=== PATIENT | female | born 1975 | race Caucasian/White ===

== ENCOUNTER 2018-06-02 12:18 | Outpatient (CLI) | payer MEDICARE, MEDICAID ==
[~2018-06-02] VITALS: Ht 167.6 cm; Wt 132.4 kg
[~2018-06-02 12:18] MED LIST: GABA300C PO; LORAZEPAM; MELO-195 PO; [UNRECOGNIZED DRUG - REMARK]
[2018-06-02 12:30] VITALS: BP 139/92
[2018-06-02] MEDS ORDERED: DICL75TA2 PO (12:34)
[2018-06-02] MEDS ORDERED: BACL10TA PO (12:34)
[2018-06-02] MEDS ORDERED: BUPR1FIL3 SL (12:34)
[2018-06-02] MEDS ORDERED: FURO-125 PO (12:34)
[2018-06-02 13:14] LABS: BASOPHILS % (AUTO) 0 % (0-10); EOSINOPHILS # (AUTO) 0.3 10^3/uL (0.0-0.3); EOSINOPHILS % (AUTO) 4 % (0-10); HEMATOCRIT 42 % (35-52); HEMOGLOBIN 14.4 G/DL (11.5-16.0); LYMPHOCYTES # (AUTO) 2.8 X 10^3 (1.0-4.0); LYMPHOCYTES % (AUTO) 35 % (12-44); MEAN CORPUSCULAR HEMOGLOBIN 31 PG (25-34); MEAN CORPUSCULAR HGB CONC 35 G/DL (32-36); MEAN CORPUSCULAR VOLUME 89 FL (80-99); MEAN PLATELET VOLUME 9.7 FL (7.4-10.4); MONOCYTES # (AUTO) 0.7 X 10^3 (0.0-1.0); MONOCYTES % (AUTO) 9 % (0-12); NEUTROPHILS # (AUTO) 4.3 X 10^3 (1.8-7.8); NEUTROPHILS % (AUTO) 53 % (42-75); PLATELET COUNT 219 10^3/uL (130-400); RED BLOOD COUNT 4.68 10^6/uL (4.35-5.85); RED CELL DISTRIBUTION WIDTH 13.4 % (10.0-14.5); WHITE BLOOD COUNT 8.1 10^3/uL (4.3-11.0)
--- NOTE | 2018-06-02 13:24 | Diagnostic Imaging Report ---
Indication: Preop excision and repair of scalp lesion. PA and lateral chest. Heart size and pulmonary vascularity are normal. Lungs are clear. There are no effusions or pneumothoraces. Impression: Negative chest. Dictated by: Dictated on workstation # [id number]
[2018-06-02 13:28] LABS: INR 1.1 (0.8-1.4); PROTHROMBIN TIME PATIENT 14.1 SEC (12.2-14.7)
[2018-06-02 13:35] LABS: ALANINE AMINOTRANSFERASE 58 U/L (0-55); ALBUMIN 4.1 GM/DL (3.2-4.5); ALKALINE PHOSPHATASE 84 U/L (40-136); BILIRUBIN,DIRECT 0.4 MG/DL (0.0-0.3); BILIRUBIN,INDIRECT 0.5 MG/DL; BILIRUBIN,TOTAL 0.9 MG/DL (0.1-1.0); BUN/CREATININE RATIO 11; CALCIUM 9.3 MG/DL (8.5-10.1); CARBON DIOXIDE 23 MMOL/L (21-32); CHLORIDE 104 MMOL/L (98-107); GFR ESTIMATED > 60; GLUCOSE 86 MG/DL (70-105); POTASSIUM 4.1 MMOL/L (3.6-5.0); SODIUM 136 MMOL/L (135-145); TOTAL PROTEIN 7.7 GM/DL (6.4-8.2)
== END 2018-06-02 13:15 | disposition home or self-care (01) ==
LOC: PREOP 12:18
PROVIDERS: ATTEND Otolaryngology Otolaryngology/Facial Plastic Surgery
DX: Z01.810 Encounter for preprocedural cardiovascular examination (principal); Z01.811 Encounter for preprocedural respiratory examination; Z01.812 Encounter for preprocedural laboratory examination; Z11.2 Encounter for screening for other bacterial diseases; L98.9 Disorder of the skin and subcutaneous tissue, unspecified; Z86.19 Personal history of other infectious and parasitic diseases
CPT/HCPCS: 36415; 71046; 80048; 80076; 85025; 85610; 85730; 87081

== ENCOUNTER → 2020-01-01 | Outpatient (CLI) | payer MEDICARE, MEDICAID ==
[~2020-01-01] MED LIST changes: +BACL10TA PO; +BUPR1FIL3 SL; +DICL75TA2 PO; +FURO-125 PO
--- NOTE | 2020-01-01 16:24 | Diagnostic Imaging Report ---
INDICATION: Chronic right knee pain. COMPARISON: None available. TECHNIQUE: Three radiographs of the right knee dated January 01, 2020. FINDINGS: No acute fracture or dislocation. Significant joint space narrowing is identified associated with the lateral knee compartment. This is associated with chronic appearing depression of the lateral tibial plateau. Significant sclerosis and irregularity is noted associated with the lateral compartment. Severe osteophytosis within the lateral compartment with additional moderate scattered osteophytosis. Tiny knee joint effusion. Severe degenerative changes of the proximal tibiofibular joint is noted with associated osteophyte formation. No suspicious radiopaque foreign body. IMPRESSION: 1. No acute osseous abnormality. 2. Severe end-stage degenerative changes within the lateral compartment. Given significant depression of the lateral tibial plateau, this may relate to sequelae of remote injury to the region. Moderate degenerative changes are noted within the remainder of the knee. 3. Small knee joint effusion. Dictated by: Dictated on workstation # [id number]
== END ==
LOC: RAD FS 15:45
PROVIDERS: ATTEND Emergency Medicine
DX: M17.11 Unilateral primary osteoarthritis, right knee (principal); M25.461 Effusion, right knee
CPT/HCPCS: 73562

== ENCOUNTER → 2020-12-09 | Outpatient (CLI) | payer MEDICARE, MEDICAID ==
--- NOTE | 2020-12-09 09:49 | Diagnostic Imaging Report ---
INDICATION: Cirrhosis. PROCEDURE: Ultrasound abdomen complete. TECHNIQUE: Multiple real-time grayscale images were obtained of the abdomen in various projections. Overall quality of the study is somewhat limited due to patient body habitus and overlying bowel gas. The liver is normal in size at 15.8 cm. No discrete liver mass is identified. The portal vein is patent and shows normal direction of flow. Gallbladder does contain multiple stones. There is no wall thickening or pericholecystic fluid. No biliary duct dilatation is seen. The pancreas was obscured by bowel gas. The spleen is normal in size at 9.9 cm. Aorta is nonaneurysmal. IVC is patent. Right and left kidneys are without evidence of calculi or hydronephrosis. There is no ascites. IMPRESSION: 1. No evidence of liver mass. 2. Cholelithiasis without evidence of acute cholecystitis. Dictated by: Dictated on workstation # [id number]
== END ==
LOC: RAD 12-02 08:00
PROVIDERS: ATTEND Internal Medicine
DX: K74.60 Unspecified cirrhosis of liver (principal); K80.20 Calculus of gallbladder without cholecystitis without obstruction
CPT/HCPCS: 76700

== ENCOUNTER → 2021-04-10 | Outpatient (CLI) | payer MEDICARE, MEDICAID ==
[~2021-04-10] MED LIST changes: +CATHETER FLUSH 10 ML SYR IV PRN; +HOLD METFORMIN - RECEIVED CONTRAST 20 ML VIAL IV SCH; +IOHEXOL 350 MG/ML 100 ML (OMNIPAQUE 350) VIAL IV ONE; +NS 100 ML (IVPB) BAG IV ONE
--- NOTE | 2021-04-10 15:18 | Diagnostic Imaging Report ---
PROCEDURE: CT abdomen and pelvis without contrast. TECHNIQUE: Multiple contiguous axial images were obtained through the abdomen and pelvis without the use of intravenous contrast. Auto Exposure Controls were utilized during the CT exam to meet ALARA standards for radiation dose reduction. INDICATION: Abdominal pain and bloody stools for 5 days. The lung bases are clear. The liver, gallbladder and bile ducts are normal. The spleen, pancreas and adrenals are normal. Kidneys, ureters and bladder are normal. There is mucosal thickening of the sigmoid colon and distal descending colon. There are several scattered diverticula in this region. The changes are consistent with a colitis and could possibly be due to diverticulitis. There is no obstruction, perforation or abscess evident at this time. The small bowel is within normal limits. There is no acute bony abnormality. IMPRESSION: Spasm and mucosal edema of the distal descending colon as well as the sigmoid colon consistent with a colitis. No obstruction or abscess is present at this time. Dictated by: Dictated on workstation # [id number]
== END ==
LOC: RAD FS 09:46
PROVIDERS: ATTEND Nurse Practitioner Family
DX: K92.1 Melena (principal); K52.9 Noninfective gastroenteritis and colitis, unspecified
CPT/HCPCS: 74176

== ENCOUNTER 2021-08-19 15:20 | Emergency (ER) | payer MEDICARE, MEDICAID ==
[~2021-08-19] VITALS: Ht 165.1 cm; Wt 122.0 kg
[~2021-08-19 15:20] MED LIST changes: -CATHETER FLUSH 10 ML SYR IV PRN; -HOLD METFORMIN - RECEIVED CONTRAST 20 ML VIAL IV SCH; -IOHEXOL 350 MG/ML 100 ML (OMNIPAQUE 350) VIAL IV ONE; -NS 100 ML (IVPB) BAG IV ONE
--- OUTSIDE RECORDS SUMMARY | 2021-08-19 15:25 | XMS REPORT | Encounter Summary ---
Author Author [facility] Organization [facility] Address Unknown Phone Unavailable Care Team Providers Care Offal Icer Poultry Name Role Phone Robert Garcia DO PCP Reason for Visit * Reason Onset Date Comments Results 07/14/2021 Labs Encounter Details Care Team Description Date Type Department Jacqueline-Jes Romero LPN Results (Labs) 07/14/2021 Telephone Transplant: Main [facility], [facility] [address] [place] [address] Social History Date Tobacco Use Types Packs/Day Years Used Current Every Day Smoker Cigarettes 0.25 20 Smokeless Tobacco: Never Used Comments Alcohol Use Standard Drinks/Week Not Currently 0 (1 standard drink = 0.6 o z pure alcohol) Sex Assigned at Date Recorded Female 11/04/2020 9:28 AM [employer] Date Recorded COVID-19 Exposure Response 07/11/2021 2:55 PM CDT In the last month, have you been in contact with No / Unsure someone who was confirmed or suspected to have Coronavirus / COVID-19? documented as of this encounter Functional Status Date of Assessment Functional Status Response 11/07/2020 Does the patient have a hearing impairment: No 11/07/2020 Does the patient have a visual impairment: Yes 11/07/2020 Does the patient have impaired ambulation: Yes 07/11/2021 Does the patient have an activity of daily living No (ADL) impairment: 07/11/2021 Does the patient have an instrumental activity of Ye s daily living (IADL) impairment: Date of Assessment Cognitive Status Response 11/07/2020 Does the patient have a cognitive impairment: No documented as of this encounter Miscellaneous Notes * Telephone Encounter - Jes Akhtar LPN - 07/27/2021 3:08 PM [employer]SEMBLY INSPECTOR Spoke with pt to go over lab results. Reeducated pt on liver health and ways to reduce fat in the liver. All pt questions were answered and pt v/u. Jes Akhtar LPN MBLY INSPECTOR * Telephone Encounter - Jes Akhtar LPN - 07/14/2021 10:49 AM CDT Attempted to reach pt to discuss lab results. Provided call back name and number . Jes Akhtar LPN documented in this encounter Plan of Treatment Not on filedocumented as of this encounter Visit Diagnoses Not on filedocumented in this encounter Additional Health Concerns Noted Time Assessment 07/11/2021 3:08 PM CDT A fall risk assessment has been complet ed for the patient 07/11/2021 3:08 PM CDT PHQ-2 Depression Total Score: 0 documented as of this encounter Care Teams Start Date End Date Offal Icer Poultry Relationship Specialty 10/11/20 Robert Garcia DO PCP - [address] [id number] documented as of this encounter
--- OUTSIDE RECORDS SUMMARY | 2021-08-19 15:25 | XMS REPORT | Encounter Summary ---
Author Author [facility] Organization [facility] Address Unknown Phone Unavailable Care Team Providers Care Research And Development Specialist Name Role Phone Robert Garcia DO PCP Reason for Referral * Radiology Services (Routine) - Pending Review Diagnoses / Procedures Referred By Contact Referred To Conta ct Specialty Diagnoses Cirrhosis of liver without ascites, unspecified hepatic cirrhosis type (HCC) Hepatitis C virus infection resolved after antiviral drug therapy Procedures US ABDOMEN LIMITED Allen Mckeon MD [address] [place] [address] Radiology Referral ID Status Reason Start Date Expiration Visits Vi sits Date Requested Authorized [id number] Pending 07/11/2021 07/11/2022 1 1 Review Reason for Visit * Reason Comments Other Encounter Details Care Team Description Date Type Department Allen Mckeon MD [address] [place] [address] Violet Cassidy, [employer] HELPER[employer] W[employer]OWS ENGINEER [address] [place] [address] Cirrhosis of liver without ascites, unsp ecified hepatic cirrhosis type (HCC) (Primary Dx); Hepatitis C virus infection resolved after antiviral drug therapy; Immunization counseling 07/11/2021 Office Visit Hepatology: [facility], Main [address], [address] [place] [address] Social History Date Tobacco Use Types Packs/Day Years Used Current Every Day Smoker Cigarettes 0.25 20 Smokeless Tobacco: Never Used Comments Alcohol Use Standard Drinks/Week Not Currently 0 (1 standard drink = 0.6 o z pure alcohol) Sex Assigned at Date Recorded Female 11/04/2020 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 documented as of this encounter Last Filed Vital Signs Reading Time Taken Comments Vital Sign 107/64 07/11/2021 3:11 PM CDT Blood Pressure 76 07/11/2021 3:11 PM CDT Pulse 36.7 C (98.1 F) 07/11/2021 3:11 PM CDT Temperature 17 07/11/2021 3:11 PM CDT Respiratory Rate 98% 07/11/2021 3:11 PM CDT Oxygen Saturation - - Inhaled Oxygen Concentration 119.2 kg (262 lb 12.8 oz) 07/11/2021 3:11 PM CDT Weight 162.6 cm (5' 4") 07/11/2021 3:11 PM CDT Height 45.11 07/11/2021 3:11 PM CDT Body Mass Index documented in this encounter Functional Status Date of Assessment [...] impairment: No documented as of this encounter Progress Notes * Violet Cassidy, [place]-[employer] W[employer] ENGINEER - 07/11/2021 2:00 PM CDT Date of Service: 07/11/2021 Chief complaint/Reason for visit: Routine hepatology visit [place] Liver Disease: compensated Cirrhosis 2/2 HCV +/- Alcohol Use and Metaboli c Liver disesase Primary Marketing Assistant Retail Division: Dr. Allen Mckeon Last clinic visit: 11/07/[address] Mckeon Subjective: Thalia Pinto is a 46 y.o. female past medical history significant for anxie ty and depression, chronic hep C, class III obesity, hypertension, dyslipidemia, prior intravenous drug usage currently on Suboxone therapy. History of Present Illness Ms. Pinto is a 46 y.o. female presenting to the hepatology clinic alone today f or continued management of compensated cirrhosis. Please refer to additional hepatology documentation noted on 11/07/20 for addition al pertinent history. We reviewed and discussed the progression of liver fibrosis from F0/F1 to F4 (ci rrhosis). We reviewed that with advanced fibrosis (cirrhosis) the recommendation to continue with hepatocellular carcinoma (HCC) screening on a every 6-month ba sis. We discussed that this includes abdominal imaging in conjunction with an a lpha-fetoprotein blood draw. HCC Screening - Abdominal Imagin06/12/21 without evidence of hepatoma - AFP:1.6 on 11/07/20 --> to update today Recommendation for repeat abdominal imaging and lab draw every 6 months in accyolanda galloce with [facility]AS[facility] HCC screening guidelines unless otherwise noted. We discussed that with advanced liver disease manifestations of decompensation c an occur. We discussed that this includes, but is not limited to: hepatic encep halopathy, abdominal ascites, lower extremity edema, and the presence of esophag eal varices. Educated that medical management is accomplished through use of pha rmacotherapies, screenings, and lifestyle modifications (ie; no more than 2000 m g of sodium daily). Compensation/Decompnsation: HE: None per patient report - daily stools/constipation: no constipation - pharmacotherapy: uses Miralax every other day Ascites/Lower Extremity Edema: None - diuretics: none - low sodium diet adherence: does not monitor EV Screening: Defer at this time - EGD Results:N/A She denies any hepatic decompensation events such as ascites, variceal hemorrhag e, encephalopathy or jaundice. She denies any overt signs of GI bleeding at this time such as hematemesis, coff ee-ground emesis, melena, or hematochezia. Tobacco Use: 1/2 ppd Alcohol Use: None Substance Use: None Hospitalizations since last OV: None Defer influenza vaccination today. Updates she completed a colonoscopy at [facility] in [place] 05/03/21. She continue to have limited mobility due to her right knee. She updated that umair ellsworth is following up with a local provider to inquire about surgery/repair. Medical History: Diagnosis Date Anxiety Depression HCV (hepatitis C virus) Hypertension Hypothyroid Obesity, morbid, BMI 40.0-49.9 (HCC) Surgical History: Procedure Laterality Date EYE SURGERY TUBAL LIGATION Family History Problem Relation Age of Onset Hypertension Mother Coronary Artery Disease Father Social History Socioeconomic History Marital status: Single Spouse name: Not on file Number of children: Not on file Years of education: Not on file Highest education level: Not on file Occupational History Not on file Tobacco Use Smoking status: Current Every Day Smoker Packs/day: 0.25 Years: 20.00 Pack years: 5.00 Types: Cigarettes Smokeless tobacco: Never Used Substance and Sexual Activity Alcohol use: Not Currently Drug use: Not Currently Sexual activity: Yes Other Topics Concern Not on file Social History Narrative Not on file Review of Systems Constitutional: Negative. HENT: Negative. Eyes: Negative. Respiratory: Negative. Negative for cough and shortness of breath. Cardiovascular: Negative. Negative for chest pain and leg swelling. Gastrointestinal: Negative. Negative for abdominal distention, abdominal pain, blood in stool, constipation, diarrhea, nausea and vomiting. Endocrine: Negative. Genitourinary: Negative. Musculoskeletal: Negative. Skin: Negative. Allergic/Immunologic: Negative. Neurological: Negative. Negative for dizziness, tremors, syncope and headaches. Hematological: Negative. Psychiatric/Behavioral: Negative. Reviewed and updated active medication and allergy list. Objective: baclofen (LIORESAL) 10 mg tablet Take 10 mg by mouth four times daily. buprenorphine/naloxone (SUBOXONE) 8/[address] 1 Film under tongue. gabapentin enacarbil 300 mg TbER Take 300 mg by mouth three times daily. lisinopriL (ZESTRIL) 10 mg tablet Take 10 mg by mouth daily. lurasidone (LATUDA) 120 mg tablet Take 120 mg by mouth at bedtime daily. MILK THISTLE PO Take by mouth. polyethylene glycol 3350 (MIRALAX) 17 g packet Take 17 g by mouth daily. simvastatin (ZOCOR) 10 mg tablet Take 10 mg by mouth at bedtime daily. Vitals: 07/11/21 1511 BP: 107/64 BP Source: Arm, Right Upper Patient Position: Sitting Pulse: 76 Resp: 17 Temp: 36.7 C (98.1 F) TempSrc: Oral SpO2: 98% Weight: 119.2 kg (262 lb 12.8 oz) Height: 162.6 cm (64") PainSc: Six Body mass index is 45.11 kg/m. Physical Exam Vitals and nursing note reviewed. Constitutional: Appearance: Normal appearance. HENT: Head: Normocephalic and atraumatic. Mouth/Throat: Comments: Mask in place Eyes: General: No scleral icterus. Conjunctiva/sclera: Conjunctivae normal. Pupils: Pupils are equal, round, and reactive to light. Cardiovascular: Rate and Rhythm: Normal rate and regular rhythm. Pulses: Normal pulses. Heart sounds: Normal heart sounds. Pulmonary: Effort: Pulmonary effort is normal. Breath sounds: Normal breath sounds. Abdominal: General: Bowel sounds are normal. There is no distension. Palpations: Abdomen is soft. Tenderness: There is no abdominal tenderness. There is no guarding or rebound . Musculoskeletal: General: No swelling. Cervical back: Normal range of motion and neck supple. Right lower leg: No edema. Left lower leg: No edema. Skin: General: Skin is warm and dry. Coloration: Skin is not jaundiced. Neurological: General: No focal deficit present. Mental Status: She is alert and oriented to person, place, and time. Mental s tatus is at baseline. Psychiatric: Mood and Affect: Mood normal. Behavior: Behavior normal. Thought Content: Thought content normal. Judgment: Judgment normal. MELD-Na score: 7 at 07/11/2021 4:17 PM MELD score: 7 at 07/11/2021 4:17 PM Calculated from: Serum Creatinine: 0.51 MG/DL (Using min of 1 MG/DL) at 07/11/2021 4:17 PM Serum Sodium: 138 MMOL/L (Using max of 137 MMOL/L) at 07/11/2021 4:17 PM Total Bilirubin: 0.6 MG/DL (Using min of 1 MG/DL) at 07/11/2021 4:17 PM INR(ratio): 1.1 at 07/11/2021 4:17 PM Age: 46 years Assessment/Plan/Recommendations Chronic Hepatitis C (genotype 1a): - Epclusa (velpatasvir 100mg/sofosbuvir 400mg) --> 1 tablet by mouth once daily for 12 weeks. Therapy complete: 05/2020-08/2020. - Achieve sustained virologic response (SVR) following completion of HCV therap y to determine cure. The HCV PCR lab should be drawn 12 weeks after completion o f HCV therapy. - SVR labs due on/after November 2021. - SRV noted on 11/07/20. Cirrhosis: - The patient has noted cirrhosis with compensation. - Continue with recommended HCC screenings as noted below. - We will continue to monitor MELD labs every 6-12 months or with noted changes in health condition/decompensation. Transient Elastography (FibroScan): - Plan to repeat re-stratification for fibrosis progression/regression next bill alvarado with an updated FibroScan. FibroScan Results 07/11/21 E (Elasticity) Median (kPa): 8.7 IQR / Median (%): 33 CAP Median (dB/m): 292 April 2020 E (Elastacity) Median:14 kPa CAP Median: 331dB/m Hepatocellular Cancer Screening: - Due to advanced fibrosis/cirrhosis a recommend screening for hepatoma every 6 months with either abdominal ultrasound or by alternating abdominal ultrasound w ith EITHER a triple/quad phase CT Liver with IV contrast OR a Quad phase MRI Mansi er with IV contrast is suggested. - AFP levels should be checked every 6 months at time of image screening. Lab Results Component Value Date/Time AFP 1.3 07/11/2021 04:17 PM Ascites/Lower Extremity Edema: - Continues to be euvoemic off all diuretics. - Continue to follow a sodium restricted (<2g sodium diet). Portosystemic Encephalopathy (PSE)/Hepatic Encephalopathy: - Presents without hepatic encephalopathy symptoms today. - Counseled on signs and symptoms of hepatic encephalopathy. - Recommend strict avoidance of medications such as narcotics, sedatives and sl eep aids. Low dose Benadryl PRN or melatonin can be used for insomnia, if needed . Esophageal Varices/Portal Hypertension: -Patient with liver stiffness less than 20 kPa and platelet count greater than 1 50 are identified at a ow probability (less than 5%) of having high risk varices a platelet count greater than 150 of low probability (less than 5%) of having hi gh risk varices. - Will continue to defer EGD f/u at this time. Bone health: - Strongly recommend screening for Vitamin D deficiency at least twice yearly wi th aggressive supplementation/replacement as indicated. Replacement per CFT prot ocol for values less than 30ng/mL. No results found for: VITD25 - Recommend calcium +Vitamin D supplementation (2000 IU of Vitamin D and 1200mg Calcium). Tobacco Use: - The patient currently has daily tobacco use and tobacco cessation was recommen ded. Alcohol Use: - The patient has a history of alcohol use and continued alcohol abstinence was encouraged. Vaccinations: Immunization History Administered Date(s) Administered Hepatitis A vaccine Ped Adol 2 dose IM 07/11/2021 Hepatitis A/B (Strongly recommend vaccinations for hepatitis A and B if the saji ent not immune.) - Reviewed titers. - Recommend booster series as outlined below if low/no immunity. May obtain with our office or with PCP office. - Vaccination recommendation per CDC guidelines: - Hepatitis A: 2-dose series HepA (Havrix 612 months apart or Vaqta 618 m onths apart [minimum interval: 6 months]) or 3-dose series HepA-HepB (Twinrix at 0, 1, 6 months [minimum intervals: 4 weeks between doses 1 and 2, 5 months betw een doses 2 and 3]) Health Maintenance & Cancer Screening: - Recommend you stay up to date for cancer screening: mammograms/PAP for women a nd prostate cancer screening for men, and colon cancer screening for all. Health Maintenance Topic Date Due MEDICARE ANNUAL WELLNESS VISIT Never done DTAP/TDAP VACCINES (1 - Tdap) Never done PHYSICAL (COMPREHENSIVE) EXAM Never done CERVICAL CANCER SCREENING Never done BREAST CANCER SCREENING Never done INFLUENZA VACCINE Never done HIV SCREENING Completed HEPATITIS C SCREENING Completed Routine Health Care in Patient with Chronic Liver Disease: - All patients with liver disease should avoid the use of Non-steroidal Anti-Inf lammatory (NSAID) medications as they can cause significant injury to the kidney s in this population. - The preferred analgesic in cirrhosis and liver disease is Tylenol, up to 2g da angel. - Recommended the patient avoid herbal supplements and over the counter herbal r emedies due to potential hepatic toxicities. COVID 19 Precautions: - With underlying liver disease you are categorized as high risk. --> We encourage that when available, you proceed with COVID 19 vaccination. - If you are diagnosed with COVID 19, please notify our office immediately to determine if you are a possible candidate to receive mAB infusion therapy. For up to date information on the COVID-19 virus, visit the CDC website. https:/ /www.cdc.gov/coronavirus General supportive care during cold and flu season and infection prevention r eminders: ? Wash hands often with soap and water for at least 20 seconds ? Cover your mouth and nose ? Social distancing: try to maintain 6 feet between you and other people ? Stay home if sick and symptoms mild or manageable If you must be around people wear a mask If you are having symptoms of a lower respiratory infection (cough, shortness of breath) and/or fever AND either traveled in last 30 days (internationally or to region of exposure) OR known exposure to patient with COVID19: ? Call your primary care provider for questions or health needs. Tell your doctor about your recent travel and your symptoms ? In a medical emergency, call 911 or go to the nearest emergency room. Follow Up: 6 months in clinic or sooner if needed. The patient is to call our office with a ny questions or changes to your health condition. Labs: MELD (CBC +Diff, CMP, INR), AFP, Vit D Imaging: HCC screening every 6 months --> due: December 2021 Procedures/Biopsy: N/A Referrals: N/A Other: 2nd Hepatitis A at next OV A total of 50 minutes was spent in the following activities: Preparing to see e patient, Obtaining and/or reviewing separately obtained history, Performing a medically appropriate examination and/or evaluation, Counseling and educating e patient/family/caregiver, Ordering medications, tests, or procedures, Document ing clinical information in the electronic or other health record and Independen tly interpreting results (not separately reported) and communicating results to the patient/family/caregiver. Patient/patient family reports that all questions have been answered at this molly e. No additional pending concerns. Thank you very much for the opportunity to participate in the care of this patie nt. If you have any further questions, please don't hesitate to contact our off ice. This note was created using [employer]fer[employer], a voice recognition software. Please c ontact my office for any clarification of documentation. MARIA L [facility] Office- [phone] Pager- [phone] documented in this encounter Procedure Notes * Violet Cassidy APRN-NP - 07/11/2021 2:00 PM CDT Associated Order(s): FIBROSCAN Procedure(s): ME LIVER ELASTOGRAPHY W/O IMAG W/I&R Pre-Procedure Diagnose(s): Cirrhosis of liver without ascites, unspecified hepat ic cirrhosis type (HCC); Hepatitis C virus infection resolved after antiviral dr emerald therapy; Encounter for screening for human immunodeficiency virus (HIV) Fibroscan Procedure Note Date:07/11/2021 Hospital Tray Service Worker: Violet Cassidy APRN Attending: Allen Mckeon MD Indication: Cirrhosis Probe Size: XL Observations E (Elasticity) Median (kPa): 8.7 IQR / Median (%): 33 CAP Median (dB/m): 292 Interpretation Fibrosis Interpretation: HCV: F2: Moderate Fibrosis Fibrosis Interpretation: Other: F2: Moderate Fibrosis Steatosis Score Correlation/Estimation: >290 S3: >67% Steatosis Recommendations: -Follow-up in clinic with liver provider to develop plan of care. Fibroscan evaluations are estimates only and due to measurement variability/reina acteristics of elastography results should be interpreted with caution and clini keisha correlation is required. I certify that I performed the interpretation of this study, including review of measurements and coding quality analyst measures. ISACC Rodriguez documented in this encounter Miscellaneous Notes * Patient Instructions - Jacqueline-Jes Romero LPN - 07/11/2021 2:00 PM CDT Images from the original note were not included. Scheduling Points Labs today (INR, CMP, CBC+DIff, AFP, Vitamin D) Follow up in person in gen hep [place] [address] Linda FIELDS abd limited same day as Linda appt Things to Remember You have a history for Hepatitis C. There are 6 different types of Hepatitis C. We have cured you of one of them. You can still get the other 5 by participating in high risk behaviors such as intranasal or iv drug use. Continue to work on diet and exercise to prevent fat buildup in your liver. You have cirrhosis which is permanent scarring in your liver. Because you have c irrhosis you are at an increased risk for liver cancer. We screen for this with imaging and blood work. You had imaging about a month ago which showed no signs of any liver lesions or tumors which means no liver cancer which is good! We got blood work today and will call you with the results. You have low immunity to Hepatitis A. We recommend you receive a booster for thi s. We also recommend you get a flu shot since you have cirrhosis. Today we gave you your first Hepatitis A vaccine. Signs of decompensated liver disease are: ascites, hepatic encephalopathy, and e sophogeal varices. Ascites is a buildup of fluid in the belly, legs, or in the chest. We treat this with water pills and paracentesis. It is also very important to keep your sodium (salt) at or under 2,000mg daily. Hepatic encephalopathy is caused by a toxic buildup of ammonia in your body. Sig ns of this are confusion and not acting like yourself. Often your family and fri ends will notice this before you do. We eliminate ammonia with bowel movements. Because of this we want you to have 2 to 4 bowel movements daily. If you do not achieve this on your own there are multiple medications that will help with this . Esophogeal varices are enlarged veins in your esophagus. These are caused by add ed pressure from your liver that backs up to your esophagus. We look for these w ith EGDs. If you were to ever have large varices we would band them to eradicate them. Based on your fibroscan you do not need an EGD at this time. After we see what y our blood work says we will know for sure if you need one. If you or your family members notice any foggy thoughts, confusion, altered ment al status, call this office. If you have new abdominal pain, call this office. If you notice yellowing of your eyes or skin, call this office. If you notice any increased swelling in your abdomen or legs/feet, call this off ice. If you cough up, vomit, or stool blood or if you have shortness of breath or jonathan st pain please go to the emergency room immediately. Back Office Tasks If you have outside labs or procedures done please call and let us know. If you need MyChart assistance please call [phone] Please Don't hesitate to call with problems or concerns LISA Araujo, [place] [address] [phone] Cirrhosis The liver is found on the right side of your belly (abdomen). It'sjust below t he rib cage. The liver has many important jobs. It removes toxins from the blood . It also helps your blood clot to stop bleeding.Cirrhosis happens when the li bay is scarred or injured. This damage is permanent. It can cause your liver to stop working(liver failure). The most common causes of cirrhosis are long-term heavy alcohol use and having h epatitis B or C. Other causes include nonalcoholic steatohepatitis (ESQUIVEL or fatt y liver disease), autoimmune disease, hemochromatosis, toxins, certain medicines , and certain viruses. Common symptoms of cirrhosis include: Tiredness or weakness Loss of appetite Nausea and vomiting Easy bleeding and bruising Swelling of the belly (abdomen) Weight loss Yellowing of the eyes or skin (jaundice) Itching Confusion Treatment helps ease symptoms and prevent more liver damage. You may also get tr eatment to fight or cure the hepatitis virus. Quitting alcohol will help slow down the disease getting worse. It may also prevent more complications. If cirrh osis gets worse and becomes life threatening,you may need aliver transplant. Home care Don't take medicines that can makeliver damage worse.Your healthcare prov ider will tell youif any of the medicines you now take need to be changed. Suresh logan with your provider or pharmacist before taking any medicine not prescribed. Th chung include dietary supplementsand herbs. Some of these may makeliver damage worse. Talk with your healthcare provider aboutmedicines that haveacetaminophen or NSAIDs such as ibuprofen and naproxen.These can also harm your liver. Stop drinking alcohol.If youfind it hard to stop drinking, seek professio nal help. Consider joining Alcoholics Anonymousor another type of treatment pr ogramfor support. If you use IV drugs, you are at high risk for hepatitis B and C. Seek help to stop. Be sure to ask your healthcare provider about recommended vaccines. These inc lude vaccines for viruses that can cause liver disease. Follow-up care Follow up with your healthcare provider, or as advised. If you have cirrhosis, y ou may need more testing to look for complications, including liver cancer. For more information and to learn about support groups for people with liver dis ease, contact: [employer],www.liverfoundation.org,701.376.9814 [employer],,www.hepatitisfoundation.org, When to seek medical advice Call your healthcare provider right away if you haveany of the following: Rapid weight gain with increased size of your belly (abdomen) or leg swelling Yellow color of your skin or eyes (jaundice) gets worse Excess bleeding from cuts or injuries [employer] last reviewed this educational content on 10/10/201919995124-4775 [employer]. All rights reserved. This information is not intended as a substitute for professional medical care. Always follow your healthcare professional's instructions. Ascites Ascites is when fluid collects in the belly area (abdomen).Symptoms include sw elling of the abdomen and a feeling of pressure. You may also have shortness of breath. In severe cases, your feet, ankles, and legs may also swell. There are many causes of ascites. They include: Cirrhosis of the liver. This is a type of damage to the liver. It is the mos t common cause of ascites.It may be from the hepatitis B or hepatitis C virus. It may be from long-term alcohol abuse. Or it may be from nonalcoholic steatohe patitis (ESQUIVEL). Other diseases. Diseases such as heart failure, kidney failure, pancreatitis , or cancer can cause ascites. To treat the condition, you may need to be on a low-salt diet. Your healthcare p nevaeh may prescribe medicines that help fluid leave your body. These medicines are called diuretics. In some cases, you may need a procedure to drain fluid fr om your abdomen. This is called paracentesis. If the cause of your ascites is no t treated, the fluid is likely to return. If the fluid becomes infected, you mikki l need to take antibiotics. If you have liver damage due to alcohol, stopping all alcohol will help slow the progress of the disease. If you have liver damage from hepatitis B or C, you may have treatments to fight the virus. If you have liver damage that is life-thre atening, you may need a liver transplant. How to say it -[facility] Home care Some medicines can make liver damage worse. Talk to your healthcare provider or pharmacist about all medicines you take. Ask them before taking any new medic pat. Ask them before you take any herbs, vitamins, or minerals. Some of these m ay affect the liver. Talk with your healthcare provider before you take acetaminophen or ibuprofen .Both of these medicines can affect your liver. Stop all alcohol use. If you have a problem with alcohol, talk with your [facility] provider about getting help and support to stop. If you use IV drugs, get help to stop. Never share needles or other drug item s. If you have cirrhosis from diabetes, obesity, or metabolic syndrome linked to ESQUIVEL, you need to get treatment for these. You will also need to exercise and l ose weight. Follow a low-sodium diet. Take medicines as directed. Follow-up care Follow up with your healthcare provider as advised.Call as directed for result s if a culture was done on the fluid, or if you had imaging tests or other tests . Your treatment may change based on the results of these tests. These resources can tell you more and help you find support: [place] [employer], , www.liverfoundation.org Hepatitis [employer],190.115.7404, www.hepatitisfoundation.or g Alcoholics Anonymous,www.aa.org or check your local phone book [place] on Alcoholism and Drug Dependence, , www.healthf [place].gov When to get medical advice Call your healthcare provider right away if you have any of these: Sudden weight gain with increased size of your abdomen or leg swelling Increasing jaundice (yellowing of skin or eyes) Excess bleeding from cuts or injuries Blood in vomit or stool (black or red color) Trouble breathing Increasing abdominal pain Confusion Fever of 100.4F (38C) or higher, chills, or as directed by your healthcar e provider Naveen last reviewed this educational content on 12/09/201919996213-7971 [employer]. All rights reserved. This information is not intended as a substitute for professional medical care. Always follow your healthcare professional's instructions. Esophageal Varices Esophageal varices are enlarged veins at the lower end ofthe esophagus. The es ophagus is the tube that carries food from your mouth to your stomach.Varices most often occur because of problems with blood flow in the liver caused by lunchroom supervisor kaushik liver disease. Normally, a blood vessel called the portal vein carries blood from the digestive organs to the liver. But with liver disease, blood flow can be blocked due to scarring of the liver. This increases the blood pressure in th e portal vein (a condition known as portal hypertension). Blood then backs up in nearby veins in the esophagus and stomach, causing varices. Varices are a bhakti us and deadly problem. Treatment is needed to prevent them from bursting (ruptur ing) and bleeding. If bleeding occurs, it can be fatal. With esophageal varices, blood vessels in the esophagus become abnormally enlarg ed. They may then burst (rupture) and bleed. Symptoms of esophageal varices Symptoms don't occur unless the varices are bleeding. This is an emergency probl em. If you have any of the following symptoms, get medical attention right away: Vomiting blood or vomit that looks like coffee grounds Black, tarry, or bloody stools Feeling lightheaded, or fainting (loss of consciousness) Diagnosing esophageal varices Youll likely be checked for varices if you have liver disease or other health problems that can cause them. Your healthcare provider will ask about your symp toms and health history. Youll also be examined. Tests are then done to confi rm the problem. Tests can include: Upper endoscopy.This is done to see inside the upper digestive tract. Vera curiel the test, an endoscope is used. This is a thin, flexible tube with a tiny came ra on the end. Its inserted through your mouth. Its then guided down throu gh your esophagus, stomach, and first part of your small intestine. This allows the provider to check for varices and find any bleeding. Imaging tests.These provide pictures of the liver or blood flow in the live r. They allow the provider to check for enlarged veins around the liver and asse ss the risk of bleeding. Common imaging tests done include ultrasound and CT sca ns. Treating esophageal varices The goal of treatment is to reduce the risk of bleeding or to control bleeding. Treatment can include 1 or more of the following: Medicines.These may be prescribed to lower the blood pressure inside the en larged veins. This reduces the risk of bleeding. Beta-blockers are the most comm on medicine used. Endoscopic therapy.These are treatments for enlarged or bleeding veins that are done using an endoscope. With ligation, small rubber bands are placed around the veins to close them off and stop any bleeding. With sclerotherapy, a blood- clotting medicine is injected into the veins to cause scarring and shrink them. Balloon tamponade. A tube with a balloon is guided down into your esophagus a nd stomach. The balloon is then filled with air. This puts pressure on enlarged or bleeding veins to control bleeding. This is a short-term (temporary) way to c ontrol bleeding until other treatments are available. Surgery.This may be done to place a tube-like device (stent) in the liver. The stent helps redirect blood flow in the liver to lower the blood pressure in enlarged veins. Sometimes, the enlarged veins may be connected to other nearby v eins to redirect blood flow. In severe cases, a liver transplant may be needed. For this surgery, a diseased liver is replaced with a healthy liver from another person. Follow-up Regular visits with your provider are needed to check for bleeding of the varice s. If bleeding occurs, it's likely to occur again. More treatments will then be needed in the future. Once endoscopic therapy (banding) is done, regular follow- up endoscopic scans with banding are done to completely get rid of the varices. If you are given medicines to take by mouth, be sure to take them as directed. Work closely with your provider to manage your condition. Know when to seek state mental health facility care. [employer] last reviewed this educational content on 02/07/201919997777-6041 The [employer]. All rights reserved. This information is not intended as a substitute for professional medical care. Always follow your healthcare professional's instructions. Hepatic Encephalopathy (HE) Understanding Hepatic Encephalopathy (HE) Hepatic encephalopathy (HE) is caused by liver disease. HE changes the way the brain works. When the liver is affected by disease for long periods of time, the liver forms scar tissue that replaces healthy liver tissue. When the scar ti ssue takes over it is call cirrhosis. Cirrhosis does not allow the liver clean the blood of the toxins. Those toxins affect the brain and cause HE. Hepatic Encephalopathy Symptoms HE can cause any of these problems: Confusion Mood changes (excited, nervous, acting strangely) Sleep changes (sleepy in the day, awake at night) Memory loss Speech not clear Writing not clear Being clumsy or slow in walking or with other body movements HE symptoms can also worsen because of other medical problems such as bleeding f rom the stomach, intestines, or colon; infection, constipation, dehydration, zane ijeoma, or certain medications (such as narcotics or anti-anxiety meds). Managing Hepatic Encephalopathy If you have any HE symptoms with liver disease, your doctor may prescribe medica tions to help: Lactulose works by clearing toxins through the bowel. Xifaxan (rifaxamin) pronounced Zy-fax-in can be ordered to treat sy mptoms not controlled by lactulose, and kills bacteria that make toxins. The doctor may also stop a medication that is thought to be causing HE (such as narcotics or anti-anxiety meds). You can improve symptoms of HE by: Taking lactulose as prescribed in order to have 3 or 4 bowel movements daily, and your bowels are moving regularly. Taking other medications (if ordered by your doctor) such as Xifaxan. Checking with your doctor or nurse before starting any new medications. Not taking any kind of drugs or alcohol. Seek early medical help for any infections or bleeding. If you feel that you have any symptoms of HE that are listed above you should co ntact your doctors office or seek early medical help. documented in this encounter Plan of Treatment Order Schedule Name Type Priority Associated Diag noses Expected: 01/08/2022 (Approximate), Expi res: 07/11/2022 US ABDOMEN LIMITED Imaging Routine Cirrhosis o f liver without ascites, unspecified hepatic cirrhosis type (HCC) Hepatitis C virus infection resolved after antiviral drug therapy documented as of this encounter Procedures Comments Procedure Name Priority Date/Time Associated Diag nosis ME LIVER ELASTOGRAPHY W/O Routine 07/11/2021 Cirr hosis of liver IMAG W/I&R 2:00 PM CDT without ascites, unspecified hepatic cirrhosis type (HCC) Hepatitis C virus infection resolved after antiviral drug therapy documented in this encounter Results * 25-OH VITAMIN D (D2 + D3) (07/11/2021 4:17 PM CDT) Vitamin 47.9 30 - 80 NG/ML [facility] D(25-OH)Total Specimen Blood Performing Organization Address City/State/ZIP Code P joseph Number [facility] [address] [place] [address] * PROTIME INR (PT) (07/11/2021 4:17 PM CDT) Pathologist [facility] INR 1.1 0.8 - 1.2 [facility] Specimen Blood Performing Organization Address City/[facility]/ZIP Code P joseph Number [facility] [address] [place] [address] * COMPREHENSIVE METABOLIC PANEL (07/11/2021 4:17 PM CDT) Pathologist [facility] Sodium 138 137 - 147 MMOL/L [facility] Potassium 4.2 3.5 - 5.1 MMOL/L [facility] Chloride 102 98 - 110 MMOL/L [facility] Glucose 89 70 - 100 MG/DL [facility] Blood Urea 10 7 - 25 MG/DL [facility] Nitrogen Creatinine 0.51 0.4 - 1.00 MG/DL [facility] Calcium 9.4 8.5 - 10.6 MG/DL [facility] Total Protein 7.1 6.0 - 8.0 G/DL [facility] Total Bilirubin 0.6 0.3 - 1.2 MG/DL [facility] Albumin 4.2 3.5 - 5.0 G/DL [facility] Alk Phosphatase 65 25 - 110 U/L [facility] AST (SGOT) 16 7 - 40 U/L [facility] CO2 28 21 - 30 MMOL/L [facility] ALT (SGPT) 10 7 - 56 U/L [facility] Anion Gap 8 3 - 12 [facility] eGFR Non >60 >60 mL/min [facility] Comment: [place] The eGFR is not validated f or use in drug dosing adjustments. Continue to use estimated creatinine clearance per dosing reference text. Please contact the Clinical Pharmacist for questions. eGFR >60 >60 mL/min [facility] [place] Comment: The eGFR is not validated for use in drug dosing adjustments. Continue to use estimated creatinine clearance per dosing reference text. Please contact the Clinical Pharmacist for questions. Specimen Blood Performing Organization Address City/[facility]/ZIP Code P joseph Number [facility] [address] [place] [address] * CBC AND DIFF (07/11/2021 4:17 PM CDT) Pathologist [facility] White Blood 7.6 4.5 - 11.0 K/UL [facility] Cells RBC 4.47 4.0 - 5.0 M/UL [facility] Hemoglobin 13.7 12.0 - 15.0 GM/DL [facility] Hematocrit 40.7 36 - 45 % [facility] MCV 91.0 80 - 100 FL [facility] MCH 30.5 26 - 34 PG [facility] MCHC 33.5 32.0 - 36.0 G/DL [facility] RDW 13.3 11 - 15 % [facility] Platelet Count 239 150 - 400 K/UL [facility] MPV 8.0 7 - 11 FL [facility] Neutrophils 53 41 - 77 % [facility] Lymphocytes 34 24 - 44 % [facility] Monocytes 9 4 - 12 % [facility] Eosinophils 4 0 - 5 % [facility] Basophils 0 0 - 2 % [facility] Absolute 4.08 1.8 - 7.0 K/UL [facility] Neutrophil Count Absolute Lymph 2.59 1.0 - 4.8 K/UL [facility] Count Absolute 0.66 0 - 0.80 K/UL [facility] Monocyte Count Absolute 0.27 0 - 0.45 K/UL [facility] Eosinophil Count Absolute 0.02 0 - 0.20 K/UL [facility] Basophil Count Specimen Blood Performing Organization Address City/State/ZIP Code P joseph Number [facility] [address] [place] [address] * ALPHA FETO PROTEIN (AFP) (07/11/2021 4:17 PM CDT) Alpha Feto 1.3 0.0 - 15.0 NG/ML [facility] Protein Specimen Blood Performing Organization Address City/[facility] Code P joseph Number [facility] [address] [place] [address] * ME LIVER ELASTOGRAPHY W/O IMAG W/I&R (07/11/2021 2:00 PM CDT) Narrative IN CLINIC - 07/11/2021 2:00 PM CDT Violet Cassidy APRN-[employer] W[employer]OWS ENGINEER 07/11/2021 8:54 PM Fibroscan Procedure Note Date:07/11/2021 Hospital Tray Service Worker: Violet Cassidy APRN Attending: Allen Mckeon MD Indication: Cirrhosis Probe Size: XL Observations E (Elasticity) Median (kPa): 8.7 IQR / Median (%): 33 CAP Median (dB/m): 292 Interpretation Fibrosis Interpretation: HCV: F2: Moderate Fibrosis Fibrosis Interpretation: Other: F2: Moderate Fibrosis Steatosis Score Correlation/Estimation: >290 S3: >67% Steatosis Recommendations: -Follow-up in clinic with liver provider to develop plan of care. Fibroscan evaluations are estimates only and due to measurement variability/characteristics of elastography results should be interpreted with caution and clinical correlation is required. I certify that I performed the interpretation of this study, including review of measurements and coding quality analyst measures. Violet Cassidy APRN-[employer] W[employer]OWS ENGINEER Performing Organization Address City/State/ZIP Code P joseph Number IN CLINIC documented in this encounter Visit Diagnoses Diagnosis Cirrhosis of liver without ascites, uns pecified hepatic cirrhosis type (HCC) - Primary Hepatitis C virus infection resolved af ter antiviral drug therapy Immunization counseling Other specified counseling documented in this encounter Historical Medications * This list may reflect changes made after this encounter. Start Date End Date Medication Sig Dispensed Refills MILK THISTLE PO Take by 0 mouth. polyethylene glycol 3350 Take 17 g by 0 (MIRALAX) 17 g packet mouth daily. added in this encounter Orders First Ordered Date Immunization/Injection Count Last Ordered Da te HEPATITIS A VACCINE PED ADOL 2 DOSE IM 1 07/11/2021 documented in this encounter Additional Health Concerns Noted Time Assessment 07/11/2021 3:08 PM CDT A fall risk assessment has been complet ed for the patient 07/11/2021 3:08 PM CDT PHQ-2 Depression Total Score: 0 documented as of this encounter Care Teams Start Date End Date Research And Development Specialist Relationship Specialty 10/11/20 Robert Garcia DO PCP - General [address] [address] documented as of this encounter
--- OUTSIDE RECORDS SUMMARY | 2021-08-19 15:25 | XMS REPORT | Encounter Summary ---
Author Author [facility] Organization [facility] Address Unknown Phone Unavailable Care Team Providers Care Development Representative Name Role Phone Robert Garcia DO PCP Encounter Details Care Team Description Date Type Department Allen Mckeon MD [address] [place] [address] 07/07/2021 Telephone Hepatology: Main Ca mpus, [facility] [address] 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 documented as of this encounter Functional Status Date of Assessment Functional Status Response 11/07/2020 Does the patient have a hearing impairment: No 11/07/2020 Does the patient have a visual impairment: Yes 11/07/2020 Does the patient have impaired ambulation: Yes 11/07/2020 Does the patient have an activity of daily living No (ADL) impairment: 11/07/2020 Does the patient have an instrumental activity of No daily living (IADL) impairment: Date of Assessment Cognitive Status Response 11/07/2020 Does the patient have a cognitive impairment: No documented as of this encounter Miscellaneous Notes * Telephone Encounter - Kelle Goodwin - 07/07/2021 2:55 PM CDT Call from Thalia asking to reschedule missed appointment. Please return her keisha wolf documented in this encounter Plan of Treatment Not on filedocumented as of this encounter Visit Diagnoses Not on filedocumented in this encounter Additional Health Concerns Noted Time Assessment 11/07/2020 12:31 PM SMALL PARTS ASSEMBLER A fall risk assessment has been complet ed for the patient 11/07/2020 12:31 PM SMALL PARTS ASSEMBLER PHQ-2 Depression Total Score: 0 documented as of this encounter Care Teams Start Date End Date Development Representative Relationship Specialty 10/11/20 Robert Garcia DO PCP - General [address] [address] documented as of this encounter
--- OUTSIDE RECORDS SUMMARY | 2021-08-19 15:25 | XMS REPORT | Encounter Summary ---
Author Author [facility] Address Unknown Phone Unavailable Care Team Providers Care Wool Grader Name Role Phone Robert Garcia DO PCP Reason for Visit * Reason Onset Date Comments Results 06/22/2021 Encounter Details Care Team Description Date Type Department Allen Mckeon MD [address] [place] [address] Results 06/22/2021 Telephone Transplant: Main Ca mpus, [facility] [address] 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 She has appointment schedule with Linda on 07/04 ----- Message from Allen Mckeon MD sent at 06/21/2021 10:07 AM CDT ----- Ultrasound showed no evidence of liver mass. We will continue to monitor and sc reen for liver cancer every 6 months documented in this encounter Plan of Treatment Not on filedocumented as of this encounter Visit Diagnoses Not on filedocumented in this encounter Additional Health Concerns Noted Time Assessment 11/07/2020 12:31 PM RISK PREVENTION ENGINEER A fall risk assessment has been complet ed for the patient 11/07/2020 12:31 PM RISK PREVENTION ENGINEER PHQ-2 Depression Total Score: 0 documented as of this encounter Care Teams Start Date End Date Wool Grader Relationship Specialty 10/11/20 Robert Garcia DO PCP - General [address] [address] documented as of this encounter
--- OUTSIDE RECORDS SUMMARY | 2021-08-19 15:25 | XMS REPORT | Encounter Summary ---
Author Author [facility] Organization [facility] Address Unknown Phone Unavailable Care Team Providers Care Weaver Needle Loom Name Role Phone Robert Garcia DO PCP Encounter Details Care Team Description Date Type Department Violet Cassidy, TOOTH CUTTER PINION-EMAIL ADMINISTRATOR [address] [place] [address] 07/11/2021 Hospital Laboratory: Main Ca mpus, Encounter Main [facility] [address] [facility] [address] [place] [address] Social History Date Tobacco Use Types Packs/Day Years Used Current Every Day Smoker Cigarettes 0.25 20 Smokeless Tobacco: Never Used Comments Alcohol Use Standard Drinks/Week Not Currently 0 (1 standard drink = 0.6 o z pure alcohol) Sex Assigned at Date Recorded Female 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 buprenorphine/naloxone Place 1 Film 0 (SUBOXONE) 8/2 mg under tongue. sublingual film gabapentin enacarbil 300 Take 300 mg 0 mg TbER by mouth three times daily. lisinopriL (ZESTRIL) 10 Take 10 mg by 0 mg tablet mouth daily. lurasidone (LATUDA) 120 Take 120 mg 0 mg tablet by mouth at bedtime daily. MILK THISTLE PO Take by 0 mouth. polyethylene glycol 3350 Take 17 g by 0 (MIRALAX) 17 g packet mouth daily. simvastatin (ZOCOR) 10 mg Take 10 mg by 0 tablet mouth at bedtime daily. documented as of this encounter Discharge Disposition Code Departure Means Destination Disposition Home Home or Self Care documented in this encounter Plan of Treatment Not on filedocumented as of this encounter Procedures Comments Procedure Name Priority Date/Time Associated Diag nosis HC HEP C PCR-QUANT Routine 07/11/2021 Cirrhosis o f liver 4:17 PM CDT without ascites, unspecified hepatic cirrhosis type (HCC) Hepatitis C virus infection resolved after antiviral drug therapy HC ALPHA FETO PROTEIN, Routine 07/11/2021 Cirrhos is of liver SERUM 4:17 PM CDT without ascites, unspecified hepatic cirrhosis type (HCC) Hepatitis C virus infection resolved after antiviral drug therapy Encounter for screening for human immunodeficiency virus (HIV) HC 25-OH VITAMIN D Routine 07/11/2021 Cirrhosis o f liver 4:17 PM CDT without ascites, unspecified hepatic cirrhosis type (HCC) Hepatitis C virus infection resolved after antiviral drug therapy Encounter for screening for human immunodeficiency virus (HIV) HC PT(INR) Routine 07/11/2021 Cirrhosis of li bay 4:17 PM CDT without ascites, unspecified hepatic cirrhosis type (HCC) Hepatitis C virus infection resolved after antiviral drug therapy Encounter for screening for human immunodeficiency virus (HIV) HC CBC W/ AUTOMATED DIFF Routine 07/11/2021 Cirrh osis of liver 4:17 PM CDT without ascites, unspecified hepatic cirrhosis type (HCC) Hepatitis C virus infection resolved after antiviral drug therapy Encounter for screening for human immunodeficiency virus (HIV) HC COMPREHENSIVE Routine 07/11/2021 Cirrhosis of liver METABOLIC PANEL 4:17 PM CDT without ascites, unspecified hepatic cirrhosis type (HCC) Hepatitis C virus infection resolved after antiviral drug therapy Encounter for screening for human immunodeficiency virus (HIV) documented in this encounter Results * 25-OH VITAMIN D (D2 + D3) (07/11/2021 4:17 PM CDT) Vitamin 47.9 30 - 80 NG/ML [facility] D(25-OH)Total Specimen Blood Performing Organization Address City/State/ZIP Code P joseph Number [facility] [address] [place] [address] * PROTIME INR (PT) (07/11/2021 4:17 PM CDT) INR 1.1 0.8 - 1.2 [facility] Specimen Blood Performing Organization Address City/[facility] P joseph Number [facility] [address] [place] [address] * COMPREHENSIVE METABOLIC PANEL (07/11/2021 4:17 PM CDT) Sodium 138 137 - 147 MMOL/L [facility] [...] >60 >60 mL/min [facility] Comment: [place] The eGFR is not validated f or use in drug dosing adjustments. Continue to use estimated creatinine clearance per dosing reference text. Please contact the Clinical Pharmacist for questions. eGFR >60 >60 mL/min [facility] [place] Comment: The eGFR is not validated for use in drug dosing adjustments. Continue to use estimated creatinine clearance per dosing reference text. Please contact the Clinical Pharmacist for questions. Specimen Blood Performing Organization Address City/State/ZIP Code P joseph Number [facility] [address] [place] [address] * CBC AND DIFF (07/11/2021 4:17 PM CDT) Pathologist [facility] White Blood 7.6 4.5 - 11.0 K/UL [...] Basophil Count Specimen Blood Performing Organization Address City/[facility]/ZIP Code P joseph Number [facility] [address] [place] [address] * ALPHA FETO PROTEIN (AFP) (07/11/2021 4:17 PM CDT) Pathologist [facility] Alpha Feto 1.3 0.0 - 15.0 NG/ML [facility] Protein Specimen Blood Performing Organization Address City/[facility]/ZIP Code P joseph Number [facility] [address] [place] [address] * HEPATITIS C VIRAL LOAD PCR QUANT (07/11/2021 4:17 PM CDT) Hepatitis C HCV RNA Not Detected <12 IU/mL HELEN [facility] Virus, IU/mL Comment: The test method detects HCV viral load using the Morel RealTime assay. Please correlate results with the clinical status of the patient. Specimen Blood Performing Organization Address City/State/ZIP Code P joseph Number [facility] [address] [place] [address] documented in this encounter Visit Diagnoses Diagnosis Cirrhosis of liver without ascites, uns pecified hepatic cirrhosis type (HCC) Hepatitis C virus infection resolved af ter antiviral drug therapy Encounter for screening for human immun odeficiency virus (HIV) Special screening examination for other specified viral diseases documented in this encounter Additional Health Concerns Noted Time Assessment 07/11/2021 3:08 PM CDT A fall risk assessment has been complet ed for the patient 07/11/2021 3:08 PM CDT PHQ-2 Depression Total Score: 0 documented as of this encounter Care Teams Start Date End Date Weaver Needle Loom Relationship Specialty 10/11/20 Robert Garcia DO PCP - General [address] [address] documented as of this encounter
--- OUTSIDE RECORDS SUMMARY | 2021-08-19 15:25 | XMS REPORT | Encounter Summary ---
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
--- OUTSIDE RECORDS SUMMARY | 2021-08-19 15:25 | XMS REPORT | Clinical Summary ---
Author Author [facility] Organization [facility] Address Unknown Phone Unavailable Care Team Providers Care Adventure Challenge Instructor Name Role Phone Robert Garcia DO PCP Source Comments Some departments are not documenting in the electronic medical record. If you d o not see the information that you expected, contact [facility] of Information in [facility] Information Management department at [phone] for further assistan ce in locating additional records.[facility] Allergies Comments Active Allergy Reactions Severity Noted Date Liquid codeine Codeine HIVES Medium 11/07/2020 Medications End Date Status Medication Sig Dispensed Refills Start Date Active baclofen (LIORESAL) 10 mg Take 10 mg by 0 tablet mouth four times daily. Active gabapentin enacarbil 300 Take 300 mg 0 mg TbER by mouth three times daily. Active lurasidone (LATUDA) 120 Take 120 mg 0 mg tablet by mouth at bedtime daily. Active simvastatin (ZOCOR) 10 mg Take 10 mg by 0 tablet mouth at bedtime daily. Active lisinopriL (ZESTRIL) 10 Take 10 mg by 0 mg tablet mouth daily. Active buprenorphine/naloxone Place 1 Film 0 (SUBOXONE) 8/2 mg under tongue. sublingual film Active polyethylene glycol 3350 Take 17 g by 0 (MIRALAX) 17 g packet mouth daily. Active MILK THISTLE PO Take by 0 mouth. Active Problems Problem Noted Date Cirrhosis of liver without ascites 07/11/2021 Hepatitis C virus infection resolved after antiviral drug therapy 07/11/2021 Immunization counseling 07/11/2021 Encounters Care Team Description Date Type Specialty Null-Jes Romreo LPN Results (Labs) 07/14/2021 Telephone Transplant Surgery Violet Cassidy, GENERAL PRODUCTION MANAGER-TICKET PULLER 07/11/2021 Hospital Lab Encounter Allen Mckeon MD Wilson, Jessica N., GENERAL PRODUCTION MANAGER-TICKET PULLER Cirrhosis of liver without ascites, unsp ecified hepatic cirrhosis type (HCC) (Primary Dx); Hepatitis C virus infection resolved after antiviral drug therapy; Immunization counseling 07/11/2021 Office Visit Hepatology 07/11/2021 Travel Allen Mckeon MD 07/07/2021 Telephone Hepatology Allen Mckeon MD Results 06/22/2021 Telephone Transplant Surgery George Atwood MA 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 ites (HCC) 06/15/2021 Orders Only Transplant Surgery Allen Mckeon MD Appointment Request (cancel today's appt and resched) 06/14/2021 Telephone Hepatology Allen Mckeon MD Appointment Question 06/12/2021 Telephone Hepatology Allen Mckeon MD Other (Reschedule Appt) 06/09/2021 Telephone Hepatology Allen Mckeon MD Appointment Request 05/29/2021 Telephone Hepatology from Last 3 Months Immunizations Name Administration Dates Next Due Hepatitis A vaccine Ped 07/11/2021 Adol 2 dose IM Surgical History Surgery Date Site/Laterality Comments EYE SURGERY TUBAL LIGATION Medical History Medical History Date Comments HCV (hepatitis C virus) Hypothyroid Depression Anxiety Hypertension Obesity, morbid, BMI 40.0-49.9 (HCC) Family History Medical History Relation Name Comments Coronary Artery Disease Father Hypertension Mother Relation Name Status Comments Father Mother Social History Date Tobacco Use Types Packs/Day Years Used Current Every Day Smoker Cigarettes 0.25 20 Smokeless Tobacco: Never Used Comments Alcohol Use Standard Drinks/Week Not Currently 0 (1 standard drink = 0.6 o z pure alcohol) Sex Assigned at Date Recorded Female 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 Last Filed Vital Signs Reading Time Taken [...] 07/11/2021 3:11 PM CDT Body Mass Index Plan of Treatment Health Maintenance Due Date Last Done Comments DTAP/TDAP VACCINES (1 - 02/02/1994 Tdap) PHYSICAL (COMPREHENSIVE) 02/02/1994 EXAM CERVICAL CANCER SCREENING 02/02/1997 BREAST CANCER SCREENING 2016 INFLUENZA VACCINE 04/09/2021 HIV SCREENING Completed 11/07/2020 HEPATITIS C SCREENING Completed 07/11/2021, 11/07/2020 Procedures Comments Procedure Name Priority Date/Time Associated Diag nosis HC 25-OH VITAMIN D Routine 07/11/2021 Cirrhosis [...] screening for human immunodeficiency virus (HIV) HC ALPHA FETO PROTEIN, Routine 07/11/2021 Cirrhos is of liver SERUM 4:17 PM CDT without ascites, unspecified hepatic cirrhosis type (HCC) Hepatitis C virus infection resolved after antiviral drug therapy Encounter for screening for human immunodeficiency virus (HIV) HC HEP C PCR-QUANT Routine 07/11/2021 Cirrhosis o f liver 4:17 PM CDT without ascites, unspecified hepatic cirrhosis type (HCC) Hepatitis C virus infection resolved after antiviral drug therapy [place] LIVER ELASTOGRAPHY W/O Routine 07/11/2021 Cirr hosis of liver IMAG W/I&R 2:00 PM CDT without ascites, unspecified hepatic cirrhosis type (HCC) Hepatitis C virus infection resolved after antiviral drug therapy US ABDOMEN COMPLETE Routine 06/12/2021 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ites (HCC) from Last 3 Months Results * HEPATITIS C VIRAL LOAD PCR QUANT (07/11/2021 4:17 PM CDT) Pathologist [facility] Hepatitis C HCV RNA Not Detected <12 IU/mL MAIN L AB Virus, IU/mL Comment: The test method detects HCV viral load using the Morel RealTime assay. Please correlate results with the clinical status of the patient. Specimen Blood Performing Organization Address City/[facility]/ZIP Code P joseph Number [facility] [address] [place] [address] * ALPHA FETO PROTEIN (AFP) (07/11/2021 4:17 PM CDT) Pathologist [facility] Alpha Feto 1.3 0.0 - 15.0 NG/ML [facility] LAB Protein Specimen Blood Performing Organization Address City/[facility] P joseph Number [facility]IN LAB [address] [place] [address] * 25-OH VITAMIN D (D2 + D3) (07/11/2021 4:17 PM CDT) Vitamin 47.9 30 - 80 NG/ML [facility] LAB D(25-OH)Total Specimen Blood Performing Organization Address City/[facility]/ZIP Code P joseph Number [facility] [address] [place] [address] * PROTIME INR (PT) (07/11/2021 4:17 PM CDT) INR 1.1 0.8 - 1.2 MAIN LAB Specimen Blood Performing Organization Address City/[facility] P joseph Number [facility] [address] [place] [address] * CBC AND DIFF (07/11/2021 4:17 PM CDT) Pathologist [facility] White Blood 7.6 4.5 - 11.0 K/UL [...] P joseph Number [facility] [address] [place] [address] * COMPREHENSIVE METABOLIC PANEL (07/11/2021 4:17 PM [...] >60 >60 mL/min [facility] Comment: [place] The eGFR is not validated f or use in drug dosing adjustments. Continue to use estimated creatinine clearance per dosing reference text. Please contact the Clinical Pharmacist for questions. eGFR >60 >60 mL/min [facility] [place] Comment: The eGFR is not validated for use in drug dosing adjustments. Continue to use estimated creatinine clearance per dosing reference text. Please contact the Clinical Pharmacist for questions. Specimen Blood Performing Organization Address City/State/ZIP Code P joseph Number [facility] [address] [place] [address] * [place] LIVER ELASTOGRAPHY W/O IMAG W/I&R (07/11/2021 2:00 PM CDT) Narrative IN CLINIC - 07/11/2021 2:00 PM CDT Violet Cassidy APRN-NP 07/11/2021 8:54 PM Fibroscan Procedure Note Date:07/11/2021 Health Plan Advisor: Violet Cassidy APRN Attending: Allen Mckeon MD [...] this study, including review of measurements and corporate quality engineer measures. HEIDY RodriguezTICKET PULLER Performing Organization Address City/State/ZIP Code P joseph Number IN CLINIC * US ABDOMEN COMPLETE (06/12/2021) Modality Anatomical Region Laterality Other Abdomen Specimen Narrative Performing Organization Address City/State/ZIP Code P joseph Number [facility] from Last 3 Months Insurance Type Payer Benefit Subscriber ID Effective Phone Address Plan / Dates Group Medicaid [employer] [place] [employer] [id number] 2014-P [phone] [place] [address] [facility]/HO [id number] 11/07/2020-P [address] [facility] HEALTH/SNF 104, /NURSING [facility] [place] [address] Advance Directives Patient Business Communications Instructor Explanation Type Date Recorded Advance 11/25/2014 12:37 PM Directive/DPOA Care Teams Start Date End Date Adventure Challenge Instructor Relationship Specialty 10/11/20 Robert Garcia DO PCP - General [place] [address] [place] [address]
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
[2021-08-19] MEDS ORDERED: AMOX1TAB12 PO (15:41)
[2021-08-19] MEDS ORDERED: TETANUS,DIPTH,PERTUSS P/F (BOOSTRIX) 0.5 ML VIAL IM ONE (15:45)
[2021-08-19 15:50] VITALS: BP 113/82
== END 2021-08-19 15:47 | disposition home or self-care (01) ==
LOC: EDUNIT# 15:20 → ER FS 15:22
DX: S61.352A Open bite of right middle finger with damage to nail, initial encounter (principal); I10 Essential (primary) hypertension; J45.909 Unspecified asthma, uncomplicated; Z23 Encounter for immunization; Y04.1XXA Assault by human bite, initial encounter
CPT/HCPCS: 90471; 90715; 99284

== ENCOUNTER 2021-09-04 08:23 | Emergency (ER) | payer OTHER, MEDICARE, MEDICAID ==
[~2021-09-04] VITALS: Ht 165.1 cm; Wt 119.3 kg
[~2021-09-04 08:23] MED LIST changes: +AMOX1TAB12 PO
--- OUTSIDE RECORDS SUMMARY | 2021-09-04 08:34 | XMS REPORT | Encounter Summary ---
Author Author [facility] Organization [facility] Address Unknown Phone Unavailable Care Team Providers Care Nut Dehydrator Operator Name Role Phone Robert Garcia DO PCP Encounter Details Care Team Description Date Type Department Allen Mckeon MD [address] [place], [place] [id number] 07/07/2021 Telephone Hepatology: Main Ca mpus, [facility] [address] [facility]. 

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
[2021-09-04 09:25] VITALS: BP 119/83
== END 2021-09-04 09:25 | disposition home or self-care (01) ==
LOC: ER 08:23 → EDUNIT# 08:28 → ER 09:25
DX: S60.511A Abrasion of right hand, initial encounter (principal); G89.29 Other chronic pain; M25.561 Pain in right knee; I10 Essential (primary) hypertension; F20.9 Schizophrenia, unspecified; J45.909 Unspecified asthma, uncomplicated; F17.210 Nicotine dependence, cigarettes, uncomplicated; Z88.5 Allergy status to narcotic agent; Z79.899 Other long term (current) drug therapy; V43.52XA Car driver injured in collision with other type car in traffic accident, initial encounter; W22.11XA Striking against or struck by driver side automobile airbag, initial encounter

== ENCOUNTER → 2021-09-06 | Outpatient (CLI) | payer MEDICARE, MEDICAID ==
--- NOTE | 2021-09-06 14:00 | Diagnostic Imaging Report ---
EXAMINATION: US Venous Lower Ext Jevon. TECHNIQUE: Multiple real-time grayscale images were obtained over the lower extremities in various projections, bilaterally. Additional duplex Doppler and color Doppler images were also obtained. HISTORY: Swelling COMPARISON: No comparison available. FINDINGS: Right: The common femoral, superficial femoral, popliteal, peroneal, posterior tibial, and greater saphenous veins demonstrate normal flow, augmentation, compressibility. Left: The common femoral, superficial femoral, popliteal, peroneal, posterior tibial, and greater saphenous veins demonstrate normal flow, augmentation, compressibility. IMPRESSION: 1. No findings of deep venous thrombosis within the bilateral lower extremities. Dictated by: Dictated on workstation # [id number]
== END ==
LOC: RAD 12:00
PROVIDERS: ATTEND Nurse Practitioner Family
DX: R60.0 Localized edema (principal)
CPT/HCPCS: 93970

== ENCOUNTER → 2021-09-19 | Outpatient (CLI) | payer MEDICARE, MEDICAID ==
--- NOTE | 2021-09-19 17:21 | Diagnostic Imaging Report ---
EXAMINATION: Right knee, two views. HISTORY: Pain and swelling. COMPARISON: None available. FINDINGS: There is severe osteoarthritis of all three compartments of the right knee. There is subarticular collapse of the lateral tibial plateau. Large osteophytes are present. There is a small joint effusion. No acute fracture is seen. IMPRESSION: 1. Severe tricompartmental right knee osteoarthritis with subarticular collapse of the lateral tibial plateau. This is presumed to be chronic as there is remodeling of the overlying lateral femoral condyle. Dictated by: Dictated on workstation # [id number]
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
== END ==
LOC: RAD FS 16:28
PROVIDERS: ATTEND Nurse Practitioner Family
DX: M17.11 Unilateral primary osteoarthritis, right knee (principal); V89.2XXA Person injured in unspecified motor-vehicle accident, traffic, initial encounter
CPT/HCPCS: 73560; 73590

== ENCOUNTER → 2023-03-18 | Outpatient (CLI) | payer MEDICARE, MEDICAID | LOC: CARD 13:43 | PROVIDERS: ATTEND Internal Medicine Cardiovascular Disease | DX: R06.09 Other forms of dyspnea (principal) | CPT/HCPCS: 93306 ==